=== PATIENT | male | born 1940 | race Caucasian/White ===

== ENCOUNTER → 2018-05-17 13:35 | Outpatient (CLI) | payer MEDICARE, OTHER, SELFPAY ==
[2018-05-17 14:12] LABS: Hemoglobin 11.9 g/dL (13.5-17.5); Mean Corpuscular HGB Conc 29.7 % (30-36); Mean Corpuscular Hemoglobin 21.4 PG (26-34); Platelet Count 357 X10^3/uL (150-400); Red Blood Cell Count 5.55 X10^6/uL (4.5-5.9); Red Cell Distribution Width 18.4 % (11.6-14.8)
[2018-05-17 14:16] LABS: Add Manual Diff / Slide Review YES; White Blood Cell Count 47.5 X10^3/uL (4.5-11.0)
[2018-05-17 14:36] LABS: Alanine Aminotransferase 28 IU/L (21-72); Albumin 4.4 g/dL (3.5-5.0); Albumin Globulin Ratio 1.7 (1.0-2.8); Alkaline Phosphatase 140 U/L (38-126); Aspartate Aminotransferase 28 IU/L (17-59); Bilirubin Total 0.5 mg/dL (0.2-1.3); Blood Urea Nitrogen 15 mg/dL (9-20); Calcium 9.1 mg/dL (8.4-10.2); Carbon Dioxide 23 mmol/L (22-32); Chloride 106 mmol/L (98-107); Estimated Glomerular Filt Rate > 60.0 mL/min (>60); Globulin 2.6 g/dL (1.7-4.1); Glucose 189 mg/dL (80-110); HEMOLYSIS 25 (0-50); Potassium 4.2 mmol/L (3.4-5.1); Sodium 140 mmol/L (137-145)
--- NOTE | 2018-05-17 14:43 | PC.NURSE ---
LAB CALLED WITH CRITICAL VALUE WBC 47.5 -RESULT TO HYPNOTHERAPIST
--- NOTE | 2018-05-17 14:55 | PC.NURSE ---
Dr Potts reviewed results, noting critical WBC of 47.5. No changes at this time. Pt comes in next week for a provider visit with Dr Potts.
[2018-05-17 15:40] LABS: Microcytosis 1+; Neutrophils Absolute Manual 43700 /uL (3000-5900); Total Cells Counted 100
[2018-05-17 15:41] LABS: Anisocytosis 1+; Ovalocytes 1+
== END ==
PROVIDERS: Family Provider Family Medicine; PCP Family Medicine; Visit Provider Internal Medicine Hematology & Oncology
DX: D45 Polycythemia vera (principal)
CPT/HCPCS: 36415; 80053; 85025

== ENCOUNTER → 2018-08-23 13:50 | Outpatient (CLI) | payer MEDICARE, OTHER, SELFPAY ==
[2018-08-23 14:23] LABS: Hematocrit 41.3 % (41-53); Hemoglobin 12.2 g/dL (13.5-17.5); Mean Corpuscular HGB Conc 29.5 % (30-36); Mean Corpuscular Hemoglobin 20.6 PG (26-34); Mean Corpuscular Volume 69.9 fL (80-100); Platelet Count 310 X10^3/uL (150-400); Red Blood Cell Count 5.91 X10^6/uL (4.5-5.9); Red Cell Distribution Width 18.6 % (11.6-14.8)
[2018-08-23 14:25] LABS: Add Manual Diff / Slide Review YES; Alanine Aminotransferase 30 IU/L (21-72); Albumin 4.5 g/dL (3.5-5.0); Albumin Globulin Ratio 1.7 (1.0-2.8); Alkaline Phosphatase 135 U/L (38-126); Aspartate Aminotransferase 27 IU/L (17-59); Bilirubin Total 0.5 mg/dL (0.2-1.3); Blood Urea Nitrogen 14 mg/dL (9-20); Calcium 9.2 mg/dL (8.4-10.2); Carbon Dioxide 25 mmol/L (22-32); Chloride 103 mmol/L (98-107); Estimated Glomerular Filt Rate > 60.0 mL/min (>60); Globulin 2.6 g/dL (1.7-4.1); Glucose 250 mg/dL (80-110); HEMOLYSIS < 15 (0-50); Lactate Dehydrogenase 459 U/L (313-618); Potassium 4.1 mmol/L (3.4-5.1); Sodium 142 mmol/L (137-145); Total Protein 7.1 g/dL (6.3-8.2); White Blood Cell Count 48.2 X10^3/uL (4.5-11.0)
[2018-08-23 14:37] LABS: Neutrophils Absolute Manual 46272 /uL (3000-5900); Total Cells Counted 100
[2018-08-23 14:38] LABS: Anisocytosis 1+; Microcytosis 1+
--- NOTE | 2018-08-23 16:20 | PC.NURSE ---
WBC's elevated at 48.2 just slightly higher than previous results. Appt with MD on 08/30
== END ==
PROVIDERS: Internal Medicine Hematology & Oncology; Family Provider Family Medicine; PCP Family Medicine
DX: D45 Polycythemia vera (principal)
CPT/HCPCS: 36415; 80053; 83615; 85025

== ENCOUNTER → 2019-02-09 11:41 | Outpatient (REF) | payer MEDICARE, OTHER, SELFPAY ==
[2019-02-09 12:34] LABS: Influenza A and B by PCR Rapid Negative (Negative)
== END ==
LOC: LAB 11:41
PROVIDERS: Family Provider Family Medicine; PCP Family Medicine; Visit Provider Family Medicine
DX: R05 Cough (principal)
CPT/HCPCS: 87400

== ENCOUNTER → 2019-03-30 12:24 | Outpatient (CLI) | payer MEDICARE, OTHER, SELFPAY ==
[2019-03-30 13:01] LABS: Hemoglobin 12.8 g/dL (13.5-17.5); Mean Corpuscular HGB Conc 29.6 % (30-36); Mean Corpuscular Hemoglobin 20.7 PG (26-34); Platelet Count 449 X10^3/uL (150-400); Red Blood Cell Count 6.15 X10^6/uL (4.5-5.9); Red Cell Distribution Width 18.5 % (11.6-14.8)
[2019-03-30 13:09] LABS: Add Manual Diff / Slide Review YES
[2019-03-30 13:24] LABS: Neutrophils Absolute Manual 55384 /uL (3000-5900); Total Cells Counted 100
[2019-03-30 13:25] LABS: Hypochromasia 1+; Microcytosis 1+
[2019-03-30 13:26] LABS: Anisocytosis 2+; Ovalocytes 1+; Poikilocytosis 1+
[2019-03-30 14:08] LABS: White Blood Cell Count 60.2 X10^3/uL (4.5-11.0)
== END ==
PROVIDERS: Family Provider Family Medicine; PCP Family Medicine
DX: D45 Polycythemia vera (principal)
CPT/HCPCS: 36415; 85025

== ENCOUNTER 2019-11-12 12:49 | Day surgery (SDC) | payer MEDICARE, OTHER, SELFPAY ==
[2019-11-01 07:27] VITALS: BMI 23.0
[2019-11-12] VITALS (11 sets, daily range): BP systolic 112–153; BP diastolic 62–78; PULSE 58–85; RESP 10–25; TEMP 36.1–37.3; O2SAT 95–98; BMI 23.0
[2019-11-12] MEDS: LACTATED RINGERS 1,000 ML 42 ML IV (13:15)
--- NOTE | 2019-11-12 13:57 | SUR.PREOP ---
Patient waiting to be consented for surgery.
[2019-11-12] MEDS: CEFAZOLIN 2 GM/100 ML FROZ.PIGGY IV (14:08)
--- NOTE | 2019-11-12 14:12 | P.HP_ITS ---
History of Present Illness History of Present Illness Date Patient Seen: 11/12/19 Time Patient Seen: 14:00 Chief complaint: [id number] [facility] Narrative: The patient is a gentleman who was seen in my office for a right inguinal hernia. Initially he did not want it repaired but after doing additional reading at home he called back and decided that he wanted to have a repair. He is brought in for same. Patient History Medical History CAD (coronary artery disease) (Acute) Chest pain (Acute) Diverticulitis (Acute) Diverticulosis (Acute) HTN (hypertension) (Acute) Hx of myocardial infarction (Acute ~07/2012) Hypercholesterolemia (Acute) Hyperglycemia (Acute) Hyperparathyroidism (Acute) Kidney stones (Acute) Pancreatitis (Acute) Polycythemia vera (Acute) Prostate cancer (Acute 2013) Ulcer (Acute) Surgical History History of AAA (abdominal aortic aneurysm) repair (Acute 12/07/14) History of coronary angioplasty with insertion of stent (Acute ~03/2007) Hx of abdominal surgery (Acute ~1982) Hx of colectomy (Acute ~1982) Hx of parathyroidectomy (Acute ~2006) Hx of prostatectomy (Acute 2013) Hx of shoulder surgery (Acute) S/P colostomy takedown (Acute) Family & Social History Social History: household members none Tobacco & Substance use: Tobacco type cigarettes Smoking Status Former smoker alcohol intake never Substance Use Type does not use Meds Home Medications and Allergies Home Medications Medication Instructions Recorded Confirmed Type aspirin 81 mg PO QMWF #0 01/25/13 11/12/19 History atenolol 25 mg PO QDAY #0 01/25/13 11/12/19 History atorvastatin [Lipitor] 20 mg PO QMWF #0 01/25/13 11/12/19 History pyridoxine (vitamin B6) 100 mg PO QDAY #0 08/19/17 11/12/19 History vitamin B complex 1 cap PO 4XW 05/24/18 11/12/19 History clopidogrel [Plavix] 1 cap PO Q3-4D 11/29/18 11/12/19 History hydroxyurea 500 mg PO QDAY #90 cap 05/30/19 11/12/19 Rx omeprazole 40 mg PO DAILY 11/07/19 11/12/19 History Allergies Allergy/AdvReac Type Severity Reaction Status Date / Time No Known Drug Allergies Allergy Verified 11/12/19 13:21 Review of Systems Review of Systems Narrative: Denies any new shortness of breath chest pain black or bloody bowel movement seizures or blackouts no new chest pain or heart problems. He does have a history of them though Exam Vital Signs (past 8 hours): - 11/12/19 13:38 11/12/19 13:45 Temperature 97.3 F L 97.3 F L Pulse Rate 58 L 58 L Respiratory Rate 20 20 Blood Pressure 153/75 H 153/75 H Pulse Oximetry 98 98 Oxygen Delivery Method Room Air Narrative Exam Narrative: Operative no apparent distress. His eyes are nonicteric. Neck is supple no nodes in the neck or supraclavicular areas. Lungs are clear to auscultation without rales or rhonchi. Heart regular rate and rhythm without murmur gallop. No bruit in the neck. Abdomen is soft he has bone from presumptively migration of osteo class from his epigastric pain. It is located down to his umbilicus from his xiphoid. There is a lower midline scar from his prostatectomy. He has a reducible right inguinal hernia. Testicle on that side is nontender. I don't appreciate a hernia on the left. Assessment & Plan Assessment & Plan narrative: Patient with a right inguinal hernia that he desires to have repaired. I talked to him about it. I talked to him about the use of mesh and non mesh. He will leave that to my judgment. Risks of bleeding, infection, injury to nerves which could cause chronic pain or numbness, testicular loss all discussed with him. He appears to understand and wishes to proceed.
--- NOTE | 2019-11-12 14:16 | PM.PREOP ---
Pre-operative Note Interval Note History & Physical reviewed/Exam performed by Physician: Yes Changes to H&P: No
--- NOTE | 2019-11-12 14:33 | SUR.OPER ---
Supine on padded OR bed, head on pillow, arms secured on padded arm boards at <90 degrees abduction, legs uncrossed, safety belt at thigh, tape over blanket over lower legs.
[2019-11-12] MEDS: BUPIVACAINE 0.5% (PF) VIAL 30 ML INJ (14:40)
--- NOTE | 2019-11-12 15:38 | PM.OP.1 ---
Operative Date/Time/Diagnoses Date of procedure: 11/12/19 Time of procedure: 15:38 Pre-op diagnosis: Reducible right inguinal hernia Post-op diagnosis: same (Indirect right inguinal hernia) Procedure & Clinicians Procedure: Repair with plug and patch technique Same procedure as scheduled: Yes Indications: Chronic right inguinal hernia. Minimally symptomatic Surgeon: Matt Napier Click Yes if Unassisted: Yes Anesthesia Type: General Operative Notes Findings: Indirect sac. The floor was fairly intact. Closure Type: primary Specimen(s): none sent Prosthetic devices, grafts, tissues, transplants, or devices: Mesh Estimated Blood Loss (mL): 30 Blood products transfused: none Procedure in detail: The patient was placed supine on the operating room table and underwent general LMA anesthesia. He was prepped and draped in the usual fashion. A transverse incision was made overlying the internal ring and carried down to the level of the external oblique. The external oblique was opened parallel with its fibers through the external ring. The cord structures were elevated. The cremaster was opened proximally and search made for an indirect sac. One was found and from the cord structures. It was opened and the there was intestine visible but not adherent to the sac. The intestine was kept reduced and a pursestring of 2 0 silk was placed at the level the deep epigastric vessels. The sac was then tied distal to this as well. The distal portion of the sac was removed. Local anesthetic was infiltrated into this base of the sac and it was allowed to retract. A medium plug was placed in the defect created by this hernia and tacked into place with interrupted 0 Ethibond suture. The cremaster was then closed over it with a 3 0 Vicryl suture.. The floor was examined and was found to be fairly intact.. A patch was placed across the floor and tacked at the pubic tubercle, the posterior lamella of the anterior rectus sheath, the ilioinguinal ligament, and superior lateral to the cord. The opening was sutured in such a way to prevent tight constriction of the cord. Sutures of 0 Tycron were used to secure the mesh. The external oblique was closed with a running 3 0 Polysorb. The subcu was closed with interrupted 3 0 Polysorb. The skin was closed with a running 4 0 Polysorb subcuticular stitch and Steri-Strips. Dressing was applied, the patient was awakened, and the patient was taken to the recovery area in good condition. Of note, the patient had diffuse oozing throughout the procedure presumptively from his use of Plavix. At completion things seemed to be very dry. Much of the using was from tissue and not vessels. Complications: none Post-operative Condition: stable Disposition: PACU Plan for aftercare: Follow-up in the office
[2019-11-12] MEDS: fentaNYL 100 MCG/2 ML INJ IV (15:55)
[2019-11-12] MEDS: OXYCODONE/ACETAMINOPHEN 5/325 TABLET 1 TAB PO (16:04)
--- NOTE | 2019-11-12 16:57 | SUR.PHASEII ---
Daughter given presciptions to fill, returned when done. D/c instructions discussed with both, both voiced an understanding, pt left when ready, assisted to dress by RUSSEL Diane. Left unit in stable condition.
== END 2019-11-12 17:00 | disposition home or self-care (01) ==
PROVIDERS: Family Provider Family Medicine; PCP Family Medicine; Visit Provider Specialist
PROC: (CPT 49505; principal; 2019-11-12 14:15)
DX: K40.90 Unilateral inguinal hernia, without obstruction or gangrene, not specified as recurrent (principal); I25.10 Atherosclerotic heart disease of native coronary artery without angina pectoris; I10 Essential (primary) hypertension; I25.2 Old myocardial infarction; E78.00 Pure hypercholesterolemia, unspecified; D45 Polycythemia vera
CPT/HCPCS: 49505; C1781; J0690; J1100; J1885; J2405; J2704; J3010

== ENCOUNTER → 2020-03-19 11:35 | Outpatient (CLI) | payer MEDICARE, OTHER, SELFPAY ==
--- NOTE | 2020-03-19 | DI.RAD.S_ITS ---
PROCEDURE: XR HAND LT 2V INDICATIONS: BILATERAL THUMB PAIN TECHNIQUE: 2 views of the hand(s) acquired. COMPARISON: None. 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 Carpal bones are normally aligned. No suspicious bony lesions. Soft tissues: No suspicious soft tissue calcifications. 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 Dictated by: Ramon Whittington M.D. on 03/19/2020 at 12:07 Approved by: Ramon Whittington M.D. on 03/19/2020 at 12:08
--- NOTE | 2020-03-19 | DI.RAD.S_ITS ---
PROCEDURE: XR HAND RT 2V INDICATIONS: BILATERAL THUMB PAIN TECHNIQUE: 2 views of the hand(s) acquired. COMPARISON: None. FINDINGS: Bones: No fractures or dislocations, but there is moderate degenerative osteoarthritis at the base of the first metacarpal, slightly less pronounced than on the left.. Carpal bones are normally aligned. No suspicious bony lesions. Soft tissues: No suspicious soft tissue calcifications. IMPRESSION: Moderate degenerative osteoarthritis at the base of the first metacarpal with slight ligamentous laxity is indicated by lateral subluxation of the metacarpal base. Dictated by: Ramon Whittington M.D. on 03/19/2020 at 12:08 Approved by: Ramon Whittington M.D. on 03/19/2020 at 12:09
== END ==
PROVIDERS: Family Provider Family Medicine; PCP Family Medicine; Referring Provider Family Medicine; Visit Provider Family Medicine
DX: M25.541 Pain in joints of right hand (principal); M25.542 Pain in joints of left hand; M19.042 Primary osteoarthritis, left hand; M19.041 Primary osteoarthritis, right hand
CPT/HCPCS: 73120

== ENCOUNTER 2020-05-23 08:03 | Emergency (ER) | payer MEDICARE, OTHER, SELFPAY ==
[2020-05-23] VITALS (15 sets, daily range): BP systolic 113–166; BP diastolic 54–70; PULSE 68–81; RESP 14–25; TEMP 36.9; O2SAT 97–100; BMI 22.3
--- NOTE | 2020-05-23 08:29 | ED_ITS ---
HPI - GI Bleed General Chief complaint: GI Bleed Stated complaint: Rectal Bleeding Time Seen by Provider: 05/23/20 08:06 Source: patient Mode of arrival: EMS Limitations: no limitations History of Present Illness HPI Narrative: CC:GI Bleed HPI: The patient is an 79-year-old male who was flown by helicopter from [facility] for rectal bleeding. The patient stated that he believes that his bleeding started yesterday. He did not really look in the toilet. He states that it seems was stopped yesterday and then resumed this morning. He denies having any pain or discomfort. He denies being dizzy lightheaded or having any syncope. He is just been very weak and tired. He has no energy. He has had 2 previous episodes of profuse arm bleeding so he came in immediately. He states that he has had surgery on his stomach twice 1 for a vagotomy and nerve cutting and a 2nd for modification of his stomach. He cannot verify that he has had a partial gastrectomy. He states that he had a temporary colostomy. He denies a history of diverticulitis Crohn's disease or ulcerative colitis or irritable bowel syndrome. He is having absolutely no pain or discomfort as well as any shortness of breath chest pain racing of his heart or palpitations. He has had no fever chills or sweats. He denies any indigestion or heartburn as well as any nausea vomiting hematemesis coffee-ground emesis. He has had no urinary symptoms. He denies a history of hepatitis TB or HIV. He has had a hernia repair and he has had a prostatectomy for prostate cancer. 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 He is on no anticoagulation other than aspirin and Plavix. 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 He admits to hypertension but denies diabetes mellitus pancreatitis COPD or asthma. He is a former smoker does not drink alcohol or use any drugs. Related Data Home Medications Medication Instructions Recorded Confirmed aspirin 81 mg PO QMWF #0 01/25/13 12/12/19 atenolol 25 mg PO QDAY #0 01/25/13 12/12/19 atorvastatin [Lipitor] 20 mg PO QMWF #0 01/25/13 12/12/19 pyridoxine (vitamin B6) 100 mg PO QDAY #0 08/19/17 12/12/19 vitamin B complex 1 cap PO 4XW 05/24/18 12/12/19 omeprazole 40 mg PO DAILY 11/07/19 12/12/19 clopidogrel [Plavix] 75 mg PO Q3-4D 12/12/19 12/12/19 Previous Rx's Medication Instructions Recorded hydroxyurea 500 mg PO QDAY #90 cap 01/09/20 Allergies Allergy/AdvReac Type Severity Reaction Status Date / Time No Known Drug Allergies Allergy Verified 12/11/19 13:34 Review of Systems Review of Systems Narrative: Review of systems were all negative except for those mentioned in the history of present illness. Patient History Medical History CAD (coronary artery disease) (Acute) Chest pain (Acute) Diverticulitis (Acute) Diverticulosis (Acute) HTN (hypertension) (Acute) Hx of myocardial infarction (Acute ~07/2012) Hypercholesterolemia (Acute) Hyperglycemia (Acute) Hyperparathyroidism (Acute) Kidney stones (Acute) Pancreatitis (Acute) Polycythemia vera (Acute) Prostate cancer (Acute 2013) Ulcer (Acute) Surgical History History of AAA (abdominal aortic aneurysm) repair (Acute 12/07/14) History of coronary angioplasty with insertion of stent (Acute ~03/2007) Hx of abdominal surgery (Acute ~1982) Hx of colectomy (Acute ~1982) Hx of parathyroidectomy (Acute ~2006) Hx of prostatectomy (Acute 2013) Hx of shoulder surgery (Acute) S/P colostomy takedown (Acute) Social History marital status: unknown household members: none Smoking Status: Former smoker alcohol intake: never substance use type: does not use Smoking Status: Former smoker Substance Use Type: does not use Exam Narrative Exam Narrative: PHYSICAL EXAM: CONSTITUTIONAL: Awake, Alert, Oriented, Coherent, Cooperative in NAD. Does not appear toxic or ill. The patient appears mildly pale. HEAD: AT/NC EENT: PERRL, miotic, FROM of eyes, no discharge, no nystagmus, no history of cataracts or glaucoma NOSE:No epistaxis or nasal drainage MOUTH:Oral mucosa is moist and pale pink, posterior pharynx is without erythema or exudate. NECK: Supple, no obvious JVD, Trachea is midline without stridor, no palpable LN. THORAX: No deformity, retractions, chest wall tenderness. LUNGS: Clear, symmetrical breath sounds without respiratory distress. HEART: Normal heart tones, regular rhythm and rate without murmur. ABDOMEN: Soft, non-tender, no palpable guarding or rebound. The patient has multiple surgical scars; a suprapubic midline longitudinal scar, a super umbili radha, epigastric low midline longitudinal scar and a transverse horizontal scar in the right lower quadrant. LYMPHATIC: no palpable lymph nodes or spleen. EXTREMITIES: No edema, deformity, tenderness or cyanosis. SKIN: No rash, bruising, petechiae or purpura. NEURO: Awake, alert, oriented, conversive, cranial nerves II-XII are symmetrical , moves all 4 extremities . MENTAL HEALTH: Does not appear anxious or depressed. Initial Vital Signs Initial Vital Signs: Vital Signs Temperature 98.5 F 05/23/20 08:01 Pulse Rate 71 05/23/20 08:01 Respiratory Rate 16 05/23/20 08:01 Blood Pressure 166/66 H 05/23/20 08:01 Pulse Oximetry 100 05/23/20 08:01 Course Course Course Narrative: 0950: The patient according to the nurses has just passed a BM that was just bright red blood. The patient's lactic acid is borderline elevated. A 2nd L of IV fluid will be administered. Two blood cultures will be obtained. The patient's GFR is greater than [address] scan of his abdomen will be obtained since he has had multiple surgeries. I will then discuss the patient with the general surgeon on-call. 11:00CT reveals Call into Dr. Mcarthur 1118: Lyubov will consult, call into hospitalist. 1130: The patient and his daughter informed the nurse that if he needs surgery he would like to be transferred to [facility] because that is where he has had all of his surgical procedures performed. Dr. Mcarthur who came down to see the patient was informed of this as was . At the present time a call has been placed to the [facility] to arrange transfer. Family confirmed that the patient requests being transferred to [facility]. 1159: I spoke with the cafeteria or lunchroom checker at the [facility] who will be calling GI to discuss the patient and then the hospitalist afterwards. Arrangements for transfer are being made. 1215: I spoke with a anesthesiologist assistant at [facility] who states that he will consult. He was questioning whether not the patient needed to actually be admitted to the hospital. I explained to him that I think he needs to be admitted at least operative age here in emergency department and at home filling the toilet. [facility] will call back with the hospitalist to accept the patient being transfered. 1234: I spoke with Dr. Hunt the hospitalist at [facility] who has accepted the patient being transferred and made a direct admit to [address] [place] [address]. [facility] will call back with the bed assignment. [facility] will isolate the patient and test the patient for Covid. Orders Ordered: Discontinued Medications Sodium Chloride (Normal Saline 0.9%) 1,000 mls @ 1,000 mls/hr IV BOLUS ONE Stop: 05/23/20 09:10 Last Infusion: 05/23/20 09:54 Dose: 0 mls/hr Documented by: Admin: 05/23/20 08:41 Dose: 1,000 mls/hr Documented by: YARITZA Sodium Chloride (Normal Saline 0.9%) 1,000 mls @ 1,000 mls/hr IV BOLUS ONE Stop: 05/23/20 10:47 Last Infusion: 05/23/20 11:25 Dose: 0 mls/hr Documented by: Admin: 05/23/20 10:04 Dose: 1,000 mls/hr Documented by: YARITZA Sodium Chloride (Normal Saline 0.9%) 1,000 mls @ 125 mls/hr IV CONT WALDO Last Infusion: 05/23/20 13:46 Dose: 0 mls/hr Documented by: Admin: 05/23/20 11:58 Dose: 125 mls/hr Documented by: KAMILA Ciprofloxacin (Cipro) 400 mg in 200 mls @ 200 mls/hr IV NOW WALDO Last Infusion: 05/23/20 14:40 Dose: 0 mls/hr Documented by: Admin: 05/23/20 13:43 Dose: 200 mls/hr Documented by: KAMILA Metronidazole (Flagyl) 500 mg in 100 mls @ 100 mls/hr IV NOW ONE Stop: 05/23/20 13:03 Last Infusion: 05/23/20 14:25 Dose: 0 mls/hr Documented by: Admin: 05/23/20 12:28 Dose: 100 mls/hr Documented by: KAMILA Octreotide Acetate (Sandostatin) 50 mcg IV NOW ONE Stop: 05/23/20 09:50 Last Admin: 05/23/20 10:05 Dose: 50 mcg Documented by: YARITZA Pantoprazole Sodium (Protonix) 40 mg IV NOW ONE Stop: 05/23/20 08:40 Last Admin: 05/23/20 08:47 Dose: 40 mg Documented by: YARITZA Vital Signs Vital signs: Vital Signs - 8 hr 05/23/20 08:01 05/23/20 09:30 05/23/20 10:00 Temperature 98.5 F Pulse Rate 71 69 72 Respiratory Rate 16 22 17 Blood Pressure 166/66 H 148/70 H Pulse Oximetry 100 100 100 05/23/20 10:11 05/23/20 10:30 05/23/20 11:00 Temperature Pulse Rate 68 73 77 Respiratory Rate 23 19 17 Blood Pressure 160/69 H Pulse Oximetry 100 99 99 05/23/20 11:30 05/23/20 12:00 Temperature Pulse Rate 74 78 Respiratory Rate 16 19 Blood Pressure Pulse Oximetry 99 98 MDM - GI Bleed Medical Records Attestation: I reviewed the patient's medical records. Lab Data Attestation: I reviewed the patient's lab results. Result diagrams: 05/23/20 14:37 05/23/20 09:12 Labs: Lab Results 05/23/20 05/23/20 05/23/20 Range/Units 08:15 08:15 08:15 WBC 54.8 H* (4.5-11.0) X10^3/uL RBC 5.55 (4.5-5.9) X10^6/uL Hgb 12.6 L (13.5-17.5) g/dL Hct 43.0 (41-53) % MCV 77.5 L (80-100) fL MCH 22.8 L (26-34) PG MCHC 29.4 L (30-36) % RDW 17.3 H (11.6-14.8) % Plt Count 335 (150-400) X10^3/uL Neut % (Auto) Not Reportable Lymph % (Auto) Not Reportable Wolfe % (Auto) Not Reportable Eos % (Auto) Not Reportable Baso % (Auto) Not Reportable Lymph # (Auto) Not Reportable Wolfe # (Auto) Not Reportable Baso # (Auto) Not Reportable Total Counted 50 Seg Neutrophils % 90.0 H (38-70) % Band Neutrophils % 6.0 (3-7) % Lymphocytes % (Manual) 2.0 L (25-45) % Atypical Lymphs % 2.0 H ( - 0) % Neutrophils # (Manual) 49255 H (2117-6306) /uL RBC Morphology Not Reportable Anisocytosis 1+ H Tear Drop Cells 1+ H PT 13.0 H (10.1-12.7) SECONDS INR 1.1 (0.9-1.3) APTT 35 (26.4-36.2) SECONDS Sodium (137-145) mmol/L Potassium (3.4-5.1) mmol/L Chloride (98-107) mmol/L Carbon Dioxide (22-32) mmol/L BUN (9-20) mg/dL Creatinine (0.66-1.25) mg/dL Estimated GFR (>60) mL/min BUN/Creatinine Ratio (6-22) Glucose (80-110) mg/dL Lactate 2.3 H (0.7-2.1) mmol/L Calcium (8.4-10.2) mg/dL Total Bilirubin (0.2-1.3) mg/dL AST (17-59) IU/L ALT (<50) IU/L Alkaline Phosphatase (38-126) U/L Lactate Dehydrogenase (313-618) U/L Total Creatine Kinase (55-170) U/L CK-MB (CK-2) CK-MB (CK-2) Rel Index Troponin I (0.01-0.034) ng/mL Total Protein (6.3-8.2) g/dL Albumin (3.5-5.0) g/dL Globulin (1.7-4.1) g/dL Albumin/Globulin Ratio (1.0-2.8) Lipase (23-300) U/L Urine Color Urine Appearance Urine pH (4.5-8.0) Ur Specific [place] (1.000-1.035) Urine Protein (Negative) Urine Glucose (UA) (Negative) g/dL Urine Ketones (NEGATIVE) Urine Occult Blood (Negative) Urine Nitrate (Negative) Urine Bilirubin (NEGATIVE) Urine Urobilinogen (0.2) E.U./dL Ur Leukocyte Esterase (NEGATIVE) Urine RBC (0-5/HPF) Urine WBC (0-5/HPF) Urine Bacteria (None) Ur Culture Indicated? Stool Occult Blood (Negative) Blood Type Antibody Screen 05/23/20 05/23/20 05/23/20 Range/Units 08:15 09:12 09:34 WBC (4.5-11.0) X10^3/uL RBC (4.5-5.9) X10^6/uL Hgb (13.5-17.5) g/dL Hct (41-53) % MCV (80-100) fL MCH (26-34) PG MCHC (30-36) % RDW (11.6-14.8) % Plt Count (150-400) X10^3/uL Neut % (Auto) Lymph % (Auto) Wolfe % (Auto) Eos % (Auto) Baso % (Auto) Lymph # (Auto) Wolfe # (Auto) Baso # (Auto) Total Counted Seg Neutrophils % (38-70) % Band Neutrophils % (3-7) % Lymphocytes % (Manual) (25-45) % Atypical Lymphs % ( - 0) % Neutrophils # (Manual) (1285-0402) /uL RBC Morphology Anisocytosis Tear Drop Cells PT (10.1-12.7) SECONDS INR (0.9-1.3) APTT (26.4-36.2) SECONDS Sodium 138 (137-145) mmol/L Potassium 4.6 (3.4-5.1) mmol/L Chloride 106 (98-107) mmol/L Carbon Dioxide 24 (22-32) mmol/L BUN 18 (9-20) mg/dL Creatinine 0.98 (0.66-1.25) mg/dL Estimated GFR > 60.0 (>60) mL/min BUN/Creatinine Ratio 18.4 (6-22) Glucose 118 H (80-110) mg/dL Lactate (0.7-2.1) mmol/L Calcium 9.2 (8.4-10.2) mg/dL Total Bilirubin 0.6 (0.2-1.3) mg/dL AST 29 (17-59) IU/L ALT 25 (<50) IU/L Alkaline Phosphatase 155 H (38-126) U/L Lactate Dehydrogenase 563 (313-618) U/L Total Creatine Kinase 29 L (55-170) U/L CK-MB (CK-2) TNP CK-MB (CK-2) Rel Index TNP Troponin I < 0.012 (0.01-0.034) ng/mL Total Protein 6.7 (6.3-8.2) g/dL Albumin 4.2 (3.5-5.0) g/dL Globulin 2.5 (1.7-4.1) g/dL Albumin/Globulin Ratio 1.7 (1.0-2.8) Lipase 173 (23-300) U/L Urine Color Urine Appearance Urine pH (4.5-8.0) Ur Specific [place] (1.000-1.035) Urine Protein (Negative) Urine Glucose (UA) (Negative) g/dL Urine Ketones (NEGATIVE) Urine Occult Blood (Negative) Urine Nitrate (Negative) Urine Bilirubin (NEGATIVE) Urine Urobilinogen (0.2) E.U./dL Ur Leukocyte Esterase (NEGATIVE) Urine RBC (0-5/HPF) Urine WBC (0-5/HPF) Urine Bacteria (None) Ur Culture Indicated? Stool Occult Blood Positive H (Negative) Blood Type O Positive Antibody Screen Negative 05/23/20 05/23/20 Range/Units 09:50 14:37 WBC (4.5-11.0) X10^3/uL RBC (4.5-5.9) X10^6/uL Hgb 10.5 L (13.5-17.5) g/dL Hct 36.6 L (41-53) % MCV (80-100) fL MCH (26-34) PG MCHC (30-36) % RDW (11.6-14.8) % Plt Count (150-400) X10^3/uL Neut % (Auto) Lymph % (Auto) Wolfe % (Auto) Eos % (Auto) Baso % (Auto) Lymph # (Auto) Wolfe # (Auto) Baso # (Auto) Total Counted Seg Neutrophils % (38-70) % Band Neutrophils % (3-7) % Lymphocytes % (Manual) (25-45) % Atypical Lymphs % ( - 0) % Neutrophils # (Manual) (6201-3704) /uL RBC Morphology Anisocytosis Tear Drop Cells PT (10.1-12.7) SECONDS INR (0.9-1.3) APTT (26.4-36.2) SECONDS Sodium (137-145) mmol/L Potassium (3.4-5.1) mmol/L Chloride (98-107) mmol/L Carbon Dioxide (22-32) mmol/L BUN (9-20) mg/dL Creatinine (0.66-1.25) mg/dL Estimated GFR (>60) mL/min BUN/Creatinine Ratio (6-22) Glucose (80-110) mg/dL Lactate (0.7-2.1) mmol/L Calcium (8.4-10.2) mg/dL Total Bilirubin (0.2-1.3) mg/dL AST (17-59) IU/L ALT (<50) IU/L Alkaline Phosphatase (38-126) U/L Lactate Dehydrogenase (313-618) U/L Total Creatine Kinase (55-170) U/L CK-MB (CK-2) CK-MB (CK-2) Rel Index Troponin I (0.01-0.034) ng/mL Total Protein (6.3-8.2) g/dL Albumin (3.5-5.0) g/dL Globulin (1.7-4.1) g/dL Albumin/Globulin Ratio (1.0-2.8) Lipase (23-300) U/L Urine Color Yellow Urine Appearance Clear Urine pH 5.0 (4.5-8.0) Ur Specific [place] 1.010 (1.000-1.035) Urine Protein Negative (Negative) Urine Glucose (UA) Negative (Negative) g/dL Urine Ketones Negative (NEGATIVE) Urine Occult Blood Trace-intact (Negative) Urine Nitrate Negative (Negative) Urine Bilirubin Negative (NEGATIVE) Urine Urobilinogen 0.2 (0.2) E.U./dL Ur Leukocyte Esterase Negative (NEGATIVE) Urine RBC 0-1/hpf (0-5/HPF) Urine WBC None seen (0-5/HPF) Urine Bacteria None seen (None) Ur Culture Indicated? Cult not indicated Stool Occult Blood (Negative) Blood Type Antibody Screen ECG Data Attestation: I personally reviewed and interpreted this ECG as follows: Interpretation: 0838: The patient's EKG obtained on May 23 at 8:25 a.m. reveals a normal sinus rhythm with a ventricular rate of 63. Intervals appear to be normal QTC is 421 milliseconds axis is normal. There are no acute diagnostic ST or T-wave changes. T-waves in leads V1 appear to be biphasic. The patient has a prominent U wave in lead V3. Discharge Plan Departure Patient Disposition: [facility] Clinical Impression: GI bleed Discharge Date/Time: 05/23/20 14:40 Prescriptions: No Action atorvastatin [Lipitor] 20 MG tablet 20 mg PO QMWF Qty: 0 RF: 0 atenolol 25 MG tablet 25 mg PO QDAY Qty: 0 RF: 0 aspirin 81 MG tablet,delayed release (DR/EC) 81 mg PO QMWF Qty: 0 RF: 0 pyridoxine (vitamin B6) 100 MG tablet 100 mg PO QDAY Qty: 0 RF: 0 vitamin B complex Capsule 1 cap PO 4XW RF: 0 clopidogrel [Plavix] 75 mg Tablet 75 mg PO Q3-4D RF: 0 hydroxyurea 500 MG capsule 500 mg PO QDAY Qty: 90 RF: 3 omeprazole 40 mg Capsule,Delayed Release(Dr/Ec) 40 mg PO DAILY RF: 0
[2020-05-23] MEDS: SODIUM CHLORIDE 0.9% 1,000 ML 1000 ML IV ×2 (08:41→10:04)
[2020-05-23 08:42] LABS: Hemoglobin 12.6 g/dL (13.5-17.5); Mean Corpuscular HGB Conc 29.4 % (30-36); Mean Corpuscular Hemoglobin 22.8 PG (26-34); Mean Corpuscular Volume 77.5 fL (80-100); Platelet Count 335 X10^3/uL (150-400); Red Blood Cell Count 5.55 X10^6/uL (4.5-5.9); Red Cell Distribution Width 17.3 % (11.6-14.8)
[2020-05-23 08:45] LABS: White Blood Cell Count 54.8 X10^3/uL (4.5-11.0)
[2020-05-23 08:46] LABS: Add Manual Diff / Slide Review YES
[2020-05-23 08:47] LABS: INR 1.1 (0.9-1.3)
[2020-05-23] MEDS: PANTOPRAZOLE 40 MG VIAL IV (08:47)
[2020-05-23 08:49] LABS: PTT Partial Thromboplastin Tim 35 SECONDS (26.4-36.2)
[2020-05-23 08:52] LABS: Lactate (Lactic Acid) 2.3 mmol/L (0.7-2.1)
[2020-05-23 09:09] LABS: Neutrophils Absolute Manual 52608 /uL (3000-5900); Total Cells Counted 50
[2020-05-23 09:10] LABS: Anisocytosis 1+; Tear Drop Cells 1+
[2020-05-23 09:35] LABS: Alanine Aminotransferase 25 IU/L (<50); Albumin 4.2 g/dL (3.5-5.0); Albumin Globulin Ratio 1.7 (1.0-2.8); Alkaline Phosphatase 155 U/L (38-126); Aspartate Aminotransferase 29 IU/L (17-59); BUN Creatinine Ratio 18.4 (6-22); Bilirubin Total 0.6 mg/dL (0.2-1.3); Blood Urea Nitrogen 18 mg/dL (9-20); Calcium 9.2 mg/dL (8.4-10.2); Carbon Dioxide 24 mmol/L (22-32); Chloride 106 mmol/L (98-107); Creatine Kinase 29 U/L (55-170); Estimated Glomerular Filt Rate > 60.0 mL/min (>60); Globulin 2.5 g/dL (1.7-4.1); Glucose 118 mg/dL (80-110); Lipase 173 U/L (23-300); Potassium 4.6 mmol/L (3.4-5.1); Sodium 138 mmol/L (137-145); Total Protein 6.7 g/dL (6.3-8.2)
[2020-05-23 09:44] LABS: Occult Blood 1 Positive (Negative)
[2020-05-23 09:46] LABS: Troponin I < 0.012 ng/mL (0.01-0.034)
--- NOTE | 2020-05-23 10:03 | DI.CT.S_ITS ---
PROCEDURE: CT ABDOMEN PELVIS W CON INDICATIONS: Acute GI rectal bleed, H/O PUD, polycythema vera, diverticut TECHNIQUE: After the administration of intravenous contrast, 5 mm thick sections acquired from the diaphragm to the symphysis. 5 mm coronal and sagittal reformats were acquired. For radiation dose reduction, the following was used: automated exposure control, adjustment of mA and/or kV according to patient size. COMPARISON: [facility], CT, ABDOMEN/PELVIS WITH CONTRAST, 09/17/2016, 14:25. [facility], CT, ABDOMEN/PELVIS WITH CONTRAST, 12/07/2014, 10:54. FINDINGS: Image quality: Excellent. ABDOMEN: Lung bases: Lung bases are clear. Heart size is normal. Solid organs: Liver is normal in size and enhancement. Multiple gallstones are present in the gallbladder. Biliary system is nondilated. Pancreas enhances normally. There is mild splenomegaly. No adrenal nodules. Kidneys demonstrate normal size and enhancement, without hydronephrosis. A nonobstructing 2 mm calculus is seen in the inferior pole of the right kidney. Peritoneum and bowel: Surgical clips are noted at the gastroesophageal junction and adjacent to the proximal duodenum. Additional hyperintense foci in the left upper abdomen are seen. Postsurgical changes are also seen in the sigmoid colon from a partial colectomy. A few scattered diverticula are seen in the colon without surrounding fat stranding to suggest acute diverticulitis. The appendix is normal in size. There are no signs of bowel obstruction. The rectum is mildly distended with fluid and or stool. There is no ascites or pneumoperitoneum. Nodes and vessels: No retroperitoneal or mesenteric adenopathy by size criteria. Postsurgical changes are seen from endovascular aortic repair. Miscellaneous: No ventral hernias. PELVIS: Genitourinary: Bladder wall thickness is normal. Miscellaneous: No inguinal hernias or adenopathy. Bones: No suspicious bony lesions. No vertebral body compression fractures. Degenerative changes are seen in the lower lumbar spine and the sacroiliac joints. IMPRESSION: 1. Postsurgical changes in the sigmoid colon. Scattered colonic diverticulosis without signs of acute diverticulitis. There is no pneumoperitoneum. 2. Cholelithiasis. 3. Non-obstructing 2 mm calculus in the inferior pole the right kidney. Dictated by: Brenden Doe M.D. on 05/23/2020 at 10:13 Approved by: Brenden Doe M.D. on 05/23/2020 at 10:26
[2020-05-23] MEDS: OCTREOTIDE 100 MCG/ML VIAL 50 MCG IV (10:05)
[2020-05-23 10:13] LABS: Bacteria Urine None Seen; WBC Urine None Seen (0-5/HPF)
[2020-05-23 10:14] LABS: Appearance Urine UA CLEAR; Bilirubin Urine UA NEGATIVE (NEGATIVE); Color Urine UA YELLOW; Glucose Urine UA NEGATIVE (Negative); Ketones Urine UA NEGATIVE (NEGATIVE); Leukocyte Esterase Urine UA NEGATIVE (NEGATIVE); Nitrite Urine UA NEGATIVE (Negative); Occult Blood Urine UA TRACE-INTACT (Negative); Protein Urine UA NEGATIVE (Negative); Urobilinogen Urine UA 0.2 E.U./dL (0.2)
[2020-05-23 10:19] LABS: Culture Indicated Urine Cult Not Indicated; RBC Urine 0-1/HPF (0-5/HPF)
[2020-05-23 10:36] LABS: Reflexed Lactate in 2 Hours Y
[2020-05-23 11:01] LABS: HEMOLYSIS 21 (0-50); Lactate Dehydrogenase 563 U/L (313-618)
--- NOTE | 2020-05-23 11:37 | PC.NURSE ---
patient went on the BSC and was able to pass 200mls of jazmine blood.
[2020-05-23] MEDS: SODIUM CHLORIDE 0.9% 1,000 ML 125 ML IV (11:58)
[2020-05-23] MEDS: metroNIDAZOLE 500 MG/100 ML PIGGYBACK 100 MG IV (12:28)
[2020-05-23] MEDS: CIPROFLOXACIN 400 MG/200 ML PIGGYBACK 200 MG IV (13:43)
[2020-05-23 15:03] LABS: Hematocrit 36.6 % (41-53); Hemoglobin 10.5 g/dL (13.5-17.5)
== END 2020-05-23 14:40 | disposition short-term general hospital (02) ==
PROVIDERS: Emergency Provider Emergency Medicine; Family Provider Family Medicine; PCP Family Medicine
DX: K92.2 Gastrointestinal hemorrhage, unspecified (principal); R53.83 Other fatigue; I10 Essential (primary) hypertension; Z79.82 Long term (current) use of aspirin; D45 Polycythemia vera
CPT/HCPCS: 36415; 74177; 80053; 81001; 82270; 82550; 83605; 83615; 83690; 84484; 85014; 85018; 85025; 85610; 85730; 86850; 86900; 86901; 87040; 93005; 96361; 96365; 96366; 96367; 96375; 99284; C9113; J0744; J2354; Q9967

== ENCOUNTER → 2020-11-07 10:01 | Outpatient (CLI) | payer MEDICARE, OTHER, SELFPAY | PROVIDERS: Family Provider Family Medicine; PCP Family Medicine; Referring Provider Family Medicine; Visit Provider Family Medicine | DX: M85.852 Other specified disorders of bone density and structure, left thigh (principal); E21.3 Hyperparathyroidism, unspecified; Z85.46 Personal history of malignant neoplasm of prostate; Z87.891 Personal history of nicotine dependence | CPT/HCPCS: 77080 ==

== ENCOUNTER → 2022-02-03 10:32 | Outpatient (ROUT) | payer MEDICARE, OTHER, SELFPAY ==
[2022-02-03 10:45] LABS: Hematocrit 43.2 % (41-53); Hemoglobin 12.7 g/dL (13.5-17.5); Mean Corpuscular HGB Conc 29.4 % (30-36); Mean Corpuscular Hemoglobin 22.7 PG (26-34); Mean Corpuscular Volume 76.9 fL (80-100); Platelet Count 189 X10^3/uL (150-400); Red Blood Cell Count 5.61 X10^6/uL (4.5-5.9); Red Cell Distribution Width 18.5 % (11.6-14.8)
[2022-02-03 10:47] LABS: Alanine Aminotransferase 24 IU/L (<50); Albumin 4.8 g/dL (3.5-5.0); Albumin Globulin Ratio 1.7 (1.0-2.8); Alkaline Phosphatase 139 U/L (38-126); Aspartate Aminotransferase 31 IU/L (17-59); BUN Creatinine Ratio 14.7 (6-22); Bilirubin Total 0.8 mg/dL (0.2-1.3); Blood Urea Nitrogen 16 mg/dL (9-20); Calcium 9.6 mg/dL (8.4-10.2); Carbon Dioxide 26 mmol/L (22-32); Chloride 104 mmol/L (98-107); Estimated Glomerular Filt Rate > 60.0 mL/min (>60); Globulin 2.9 g/dL (1.7-4.1); Glucose 118 mg/dL (80-110); HEMOLYSIS 21 (0-50); Potassium 3.9 mmol/L (3.4-5.1); Sodium 141 mmol/L (137-145); Total Protein 7.7 g/dL (6.3-8.2)
[2022-02-03 10:52] LABS: Add Manual Diff / Slide Review YES; White Blood Cell Count 66.4 X10^3/uL (4.5-11.0)
[2022-02-03 11:09] LABS: Hypochromasia 2+; Neutrophils Absolute Manual 63744 /uL (3000-5900); Total Cells Counted 100
== END ==
PROVIDERS: Family Provider Family Medicine; PCP Family Medicine; Visit Provider Internal Medicine Medical Oncology
DX: D45 Polycythemia vera (principal); C92.10 Chronic myeloid leukemia, BCR/ABL-positive, not having achieved remission
CPT/HCPCS: 80053; 85007; 85025

== ENCOUNTER → 2022-02-17 11:44 | Outpatient (CLI) | payer MEDICARE, OTHER, SELFPAY ==
--- NOTE | 2022-02-17 11:46 | DI.CT.S_ITS ---
PROCEDURE: CT CHEST ABD PEL W CON INDICATIONS: Unspecified abdominal pain TECHNIQUE: After the administration of oral and intravenous contrast, axial sections acquired from the supraclavicular neck to the pubic symphysis. Coronal and sagittal reformats were performed. For radiation dose reduction, the following was used: automated exposure control, adjustment of mA and/or kV according to patient size. COMPARISON: [facility], CT, CT ABDOMEN PELVIS W CON, 05/23/2020, 9:45. FINDINGS: Image quality: Excellent. CHEST: Lower Neck: No enlarged lymph nodes. Thyroid: Within normal limits. Axillae: No enlarged lymph nodes. Chest Wall: Unremarkable. Lungs and Airways: No consolidation or suspicious nodules. Minimal inflammatory nodule, subpleural right upper lobe, image 60/3. Pleura: No pneumothorax or pleural effusions. Heart: Heart size is normal. No pericardial effusion. At least moderate coronary artery calcifications. Thoracic Vessels: The aorta and pulmonary arteries demonstrate normal size. 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 Mediastinum and Debbi: No enlarged lymph nodes. Esophagus: No wall thickening. No hiatal hernia. ABDOMEN: Liver: Unremarkable. Gallbladder: There are at least 3 separate gallstones in the gallbladder. No gallbladder wall thickening. Biliary ducts: Unremarkable. Pancreas: Unremarkable. Spleen: Moderate splenomegaly, increased from previously. Current splenic dimensions are 15.1 x 12.1 x 15.3 cm. Adrenal Glands: Unremarkable. Kidneys and Ureters: Unremarkable. Stomach and Bowel: Remote partial distal colectomy. No abnormally dilated loops. Peritoneum: No abnormal intraperitoneal fluid. No free air. Ventral Wall: No hernia. Abdominal Nodes: No retroperitoneal or mesenteric adenopathy by size criteria. Vessels: Aorta and inferior vena cava are normal in size. Remote endograft repair of an abdominal aortic aneurysm. There is a very tiny excluded residual aneurysm sac. PELVIS: Pelvic Organs: Unremarkable. Bladder: Unremarkable. Pelvic Nodes: No enlarged lymph nodes. Miscellaneous: No inguinal hernias are seen. Bones: Lumbar degenerative change. No lytic or blastic bony lesions. No compression fractures. IMPRESSION: 1. Interval increase in splenomegaly, moderate. 2. No adenopathy in the chest, abdomen, and pelvis. 3. At least moderate coronary artery calcifications. 4. No evidence of acute pulmonary process. 5. Cholelithiasis. 6. Remote endovascular treatment of a abdominal aortic aneurysm, no longer present. 7. No acute findings in the abdomen and pelvis. Dictated by: Jesus Gutierrez M.D. on 02/19/2022 at 15:16 Approved by: Jesus Gutierrez M.D. on 02/19/2022 at 15:26
== END ==
PROVIDERS: Family Provider Family Medicine; PCP Family Medicine; Referring Provider Family Medicine; Visit Provider Family Medicine
DX: K80.20 Calculus of gallbladder without cholecystitis without obstruction (principal); R16.1 Splenomegaly, not elsewhere classified; I25.10 Atherosclerotic heart disease of native coronary artery without angina pectoris; R10.9 Unspecified abdominal pain; R63.4 Abnormal weight loss
CPT/HCPCS: 71260; 74177; Q9967

== ENCOUNTER → 2022-07-19 11:39 | Outpatient (CLI) | payer MEDICARE, OTHER, SELFPAY ==
--- NOTE | 2022-07-19 11:42 | DI.RAD.S_ITS ---
PROCEDURE: XR FINGER LT MIN 2V INDICATIONS: Left index finger pain TECHNIQUE: AP hand, 2 views of the 2nd finger(s) acquired. COMPARISON: [facility], [facility], XR HAND LT 2V, 03/19/2020, 11:31. [facility], [facility], FINGER LT, 07/27/2011, 8:20. FINDINGS: Bones: There is an ill-defined nondisplaced lucency extending to the articular surface at the 2nd DIP joint seen only on the lateral view.. There is moderate 1st CMC degenerative narrowing with subchondral sclerosis and periarticular osteophytes. There is an overall appearance moderate scattered IP degenerative narrowing most severe at the PIP and DIP joints. There is prominent 2nd DIP joint space narrowing with areas of subchondral lucency appearing likely related to cysts as they do not extend to the articular surface. These have been relatively stable since 2010. Soft tissues: No suspicious soft tissue calcifications. IMPRESSION: Nondisplaced ill-defined lucency extending to the articular surface at the 2nd DIP joint seen only on one view. Fracture cannot be definitively excluded. Recommend correlation point tenderness in short interval imaging follow-up in 7-10 days. Diffuse arthritic changes as above. Dictated by: Ely Carpio M.D. on 07/19/2022 at 14:23 Approved by: Ely Carpio M.D. on 07/19/2022 at 14:27
== END ==
PROVIDERS: Family Provider Family Medicine; PCP Family Medicine; Referring Provider Family Medicine; Visit Provider Family Medicine
DX: M79.645 Pain in left finger(s) (principal)
CPT/HCPCS: 73140

== ENCOUNTER → 2022-10-06 15:25 | Outpatient (CLI) | payer MEDICARE, OTHER, SELFPAY ==
--- NOTE | 2022-10-06 | DI.RAD.S_ITS ---
PROCEDURE: XR CHEST 2V INDICATIONS: shortness of breath, edema TECHNIQUE: 2 views of the chest were acquired. COMPARISON: [facility], CR, XR CHEST 2V, 03/03/2018, 11:18. FINDINGS: Surgical changes and devices: None. Lungs and pleura: Lungs are clear. No pleural effusions or pneumothorax. Mediastinum: Mediastinal contours are normal. Heart size is normal. Bones and chest wall: No suspicious bony abnormalities. Soft tissues appear unremarkable. IMPRESSION: No acute cardiopulmonary disease. Dictated by: Wilfrid Lucas RR Interpreted: Kareem Hamm MD on 10/06/2022 at 16:12 Transcribed by: MARY on 10/06/2022 at 16:12 Approved by: Kareem Hamm M.D. on 10/06/2022 at 16:43
== END ==
PROVIDERS: Family Provider Family Medicine; PCP Family Medicine; Referring Provider Family Medicine; Visit Provider Family Medicine
DX: R06.02 Shortness of breath (principal); R60.9 Edema, unspecified
CPT/HCPCS: 71046

== ENCOUNTER → 2022-11-19 07:38 | Outpatient (CLI) | payer MEDICARE, OTHER, SELFPAY ==
--- NOTE | 2022-11-19 | DI.ECHO.S_ITS ---
[facility]---------+ [facility] +---------+ : : [address] : : : : [id number] : : : : Phone: [phone]---------+ Echocardiogram Report + + :Name: ULISSES SHIN Study Date: 11/19/2022 Height: 72 in : :[facility] ReadingLocation: Weight: 150 lb : : Gender: Male BSA: 1.9 m2 : :: 1940 Age: 82 yrs BP: 129/69 mmHg: :Reason For Study: Chest Pain, atherosclerotic heart disease : :Ordering Physician: CLEO, : :GE Performed By: Jessie Merrill : :Referring: GE GALLO : + + Interpretation Summary The ejection fraction is estimated to be 60-65%. Diastolic function was not assessed. The left atrium is moderately dilated. The right ventricle is mildly dilated. The right ventricular systolic function is normal. The right atrium is moderate to severely dilated. There is moderate mitral regurgitation. There is mild tricuspid regurgitation. The right ventricular systolic pressure is estimated to be at least 28 mmHg based on an estimated right atrial pressure of 3 mm Hg. Procedure: A two-dimensional transthoracic echocardiogram with color flow and Doppler was performed. The patient was in sinus rhythm with heart rates between 57-63 bpm during the exam. The patient had occasional PVCs during the exam. Left Ventricle: The left ventricle is normal in size and wall thickness. The ejection fraction is estimated to be 60-65%. Diastolic function was not assessed. Right Ventricle: The right ventricle is mildly dilated. The right ventricular systolic function is normal. Atria: The left atrium is moderately dilated. The right atrium is moderate to severely dilated. There is no Doppler evidence for an interatrial shunt. Mitral Valve: The mitral valve leaflets are mildly calcified. There is moderate mitral annular calcification. There is moderate calcification extending into the subvalvular apparatus. There is moderate mitral regurgitation. The mitral regurgitant jet is eccentrically directed. Aortic Valve: The aortic valve opens well. There is no aortic valve stenosis. There is trace aortic regurgitation. Tricuspid Valve: The tricuspid valve is normal in structure and function. There is mild tricuspid regurgitation. The right ventricular systolic pressure is estimated to be at least 28 mmHg based on an estimated right atrial pressure of 3 mm Hg. Pulmonic Valve: The pulmonic valve leaflets are thin and pliable; valve motion is normal. There is a trace or physiologic amount of pulmonic regurgitation. Great Vessels: The aortic root is normal size. The dimensions of the ascending aorta are normal. The IVC is of normal diameter and collapses greater than 50% with a sniff. This suggests a low right atrial pressure of 3 mm Hg. Pericardium/ Pleura There is no pericardial effusion. There is no pleural effusion. MMode/2D Measurements & Calculations LVIDd: 4.2 cm LVOT diam: 2.0 cm LVIDs: 3.1 cm Ao root diam: 3.6 cm FS: 25.9 % asc Aorta Diam: 3.4 cm EPSS: 0.25 cm IVSd: 1.0 cm LVPWd: 0.99 cm LV ralph. diameter/BSA (cm/m^2): 2.2 LV sys. diameter/BSA (cm/m^2): 1.7 LA A2 area: 23.4 cm2 RA long axis: 5.4 cm LA A4 area: 21.7 cm2 RA area: 23.1 cm2 LA length (vol): 5.4 cm RA vol: 84.8 ml LA vol: 80.0 ml RA : 45.0 ml/m2 LA vol index: 42.4 ml/m2 RVD1 (basal): 4.9 cm TAPSE: 2.7 cm Doppler Measurements & Calculations Ao V2 max: 125.4 cm/sec LVOT Max Reed: 113.3 cm/sec Ao V2 mean: 83.6 cm/sec LV V1 max P.1 mmHg Ao max P.3 mmHg LV V1 VTI: 30.1 cm Ao mean P.2 mmHg SALOME(I,D): 3.0 cm2 Ao V2 VTI: 31.2 cm SALOME(V,D): 2.8 cm2 sev ratio: 0.97 SALOME indexed to BSA (cm^2/m^2): 1.6 MV E max reed: 112.3 cm/sec TR max reed: 255.1 cm/sec MV A max reed: 95.9 cm/sec TR max P.5 mmHg MV E/A: 1.2 PA V2 max: 75.6 cm/sec MV dec time: 0.25 sec PA V2 mean: 61.1 cm/sec MVA(VTI): 2.1 cm2 PA mean P.6 mmHg MV V2 mean: 68.9 cm/sec SV(LVOT): 94.8 ml MV mean P.2 mmHg MV V2 VTI: 44.3 cm Reading Physician:12:49 PM
== END ==
PROVIDERS: Family Provider Family Medicine; PCP Family Medicine; Referring Provider Family Medicine; Visit Provider Family Medicine
DX: R07.89 Other chest pain (principal); I25.10 Atherosclerotic heart disease of native coronary artery without angina pectoris; I08.1 Rheumatic disorders of both mitral and tricuspid valves
CPT/HCPCS: 93306

== ENCOUNTER 2023-01-02 05:18 | Inpatient (IN) | payer MEDICARE, OTHER, SELFPAY ==
[2023-01-02] VITALS (39 sets, daily range): BP systolic 59–133; BP diastolic 36–68; PULSE 77–155; RESP 14–34; TEMP 35.7–37.3; O2SAT 76–100
--- NOTE | 2023-01-02 | PATH_ITS ---
[facility] Accession Number: [id number] No. of containers..01 Tissue . 01 Material submitted: . spleen - SPLEEN . 01 Diagnosis: Spleen, Splenectomy: Splenic parenchyma, weight 627 grams, with gross laceration, capsular disruption, hemorrhage, and changes secondary to injury (per provided chart notes). Negative for malignancy. MRV 01/06/2023 1324 Local . 01 Electronically signed: . Drew Cruz MD, Pathologist NPI- [id number] . 01 Gross description: . The specimen is received in formalin labeled with the patient's name, , and spleen, and consists of a 627 g spleen measuring 13.5 cm SI, 12.3 cm ML, 6.7 cm AP. The capsule is diffusely across approximately 50% of the external surface with multiple lacerations across the anterolateral and posterior surfaces ranging from 2.1 cm to 4.3 cm in greatest dimension. Palpation of the small amount of hilar fat reveals no lymph node candidates grossly identified. No lymph nodes or accessory spleens are identified. Sectioning reveals a hemorrhagic area on the cut surface adjacent to the aforementioned lacerations in an area measuring approximately 3.4 cm in greatest dimension. The remaining parenchyma is grossly normal with no discrete lesions or nodules identified. Sheet Finisher sections are submitted as follows: A1: Hilar vascular margins en face. A2-A4: Sheet Finisher lacerations, hemorrhage, and capsular disruption. A5-A6: Sheet Finisher normal parenchyma. ([id number]) /Bekah 01/05/2023 0240 Local . 01 Microscopic: . Microscopic examination reveals hemorrhage and expanded red pulp with vascular congestion, changes (including capsular disruption and gross lacerations) secondary to reported splenic injury, due to trauma. . On the intact areas of splenic parenchyma, no significant diagnostic abnormalities are identified on the white or red pulp. . 01 Pathologist provided ICD-10: K66.1 . 01 CPT . 894643 Specimen Comment: A courtesy copy of this report has been sent to [facility] Pathology Performed at: 01 [facility] [address] [place] [address], [place], [place] [id number] MD Kendall Mac MD Phone: [phone]
--- NOTE | 2023-01-02 05:28 | DI.CT.S_ITS ---
PROCEDURE: CT CERVICAL SPINE WO CON INDICATIONS: Trauma TECHNIQUE: Noncontrast 3 mm thick sections acquired from the skull base to the T4 level. Sagittal and coronal reformats were then constructed. For radiation dose reduction, the following was used: automated exposure control, adjustment of mA and/or kV according to patient size. COMPARISON: None. FINDINGS: Image quality: Excellent. Bones: Nondisplaced coronal E oriented fractures of the lateral masses of C2 traversing through the vertebral foramen. Mild spondylitic degenerative changes and arthropathy. Left 2nd and 3rd rib fractures are seen. Soft tissues: Prevertebral soft tissues are normal in thickness. No paravertebral hematomas. Soft tissue air in the left neck. Partially visualized bilateral pneumothoraces. IMPRESSION: 1. Nondisplaced coronal E oriented fractures through the lateral masses of C2. 2. Bilateral pneumothoraces. 3. Left 2nd and 3rd rib fractures. Dictated by: Xu Alejo M.D. on 01/02/2023 at 9:32 Approved by: Xu Alejo M.D. on 01/02/2023 at 9:34
--- NOTE | 2023-01-02 05:28 | DI.CT.S_ITS ---
PROCEDURE: CT HEAD/BRAIN WO CON INDICATIONS: Trauma TECHNIQUE: Noncontrast 4.5 mm thick angled axial sections acquired from the foramen magnum to the vertex, with coronal and sagittal reformats. For radiation dose reduction, the following was used: automated exposure control, adjustment of mA and/or kV according to patient size. COMPARISON: None. FINDINGS: Image quality: Excellent. CSF spaces: Basal cisterns are patent. No extra-axial fluid collections. Ventricles are normal in size and shape. Brain: No midline shift. No intracranial masses or hemorrhage. Whitley-white matter interface is normal. Skull and face: Calvarium and visualized facial bones are intact, without suspicious lesions. Soft tissue swelling of the posterior occiput. Sinuses: Visualized sinuses and mastoids are clear. IMPRESSION: No acute intracranial abnormality. Dictated by: Xu Alejo M.D. on 01/02/2023 at 9:21 Approved by: Xu Alejo M.D. on 01/02/2023 at 9:22
--- NOTE | 2023-01-02 05:28 | DI.CT.S_ITS ---
PROCEDURE: CT CHEST ABD PEL W CON INDICATIONS: Trauma TECHNIQUE: After the administration of intravenous contrast, 5 mm thick sections acquired from the lung apices to the symphysis. 2.5 mm thick coronal and sagittal reformats were acquired. Additional 7 mm thick coronal maximum intensity projection (MIP) reformats acquired through the lungs. Optional 10-minute delayed imaging may be performed from the kidneys to the bladder. For radiation dose reduction, the following was used: automated exposure control, adjustment of mA and/or kV according to patient size. COMPARISON: [facility], CT, CT HEAD/BRAIN WO CON, 01/02/2023, 6:09. [facility], CT, CT CHEST ABD PEL W CON, 02/17/2022, 12:45. FINDINGS: Image quality: Excellent. CHEST: Lungs: Approximately 50% right pneumothorax and 60-70% left pneumothorax. No significant midline shift. Bilateral pleural effusions. There may be a minor hemorrhagic component in the left pleural effusion. Partial atelectasis of the lower lobes and left upper lobe. Mediastinum: No mediastinal hematomas. The coronary arteries have atherosclerotic calcifications. Heart size is normal. No pericardial effusion. Thoracic aorta and pulmonary arteries demonstrate normal size and enhancement. No mediastinal or hilar adenopathy. Esophagus is normal in caliber. No hiatal hernia. Chest wall: Soft tissue air in the left chest wall. No subcutaneous emphysema. No axillary or supraclavicular adenopathy. Thyroid gland is normal. ABDOMEN: Solid organs: Liver is normal in size and enhancement, without lacerations. Gallbladder contains a gallstone. Biliary system is non-dilated. Pancreas enhances normally, without transection. 10.0 x 8.3 x 8.3 cm complex intraparenchymal laceration involving the spleen containing multiple areas of IV contrast extravasation within intrasplenic hematoma. Minor adjacent perisplenic blood. The splenic hilum vascular structures are intact. The left kidney and left adrenal gland are intact. Inferior left perinephric hematoma containing small areas of intraparenchymal hematoma contrast extravasation. This hematoma is regular in contour measuring 5 x 10 x 5.5 cm. Associated surrounding ill-defined left retroperitoneal blood. Just above the left renal vein, left renal artery, and posterior pancreatic body is an additional hematoma with surrounding ill-defined blood containing small IV contrast extravasation. This hematoma measures 4.2 x 3.6 x 3.4 cm. Peritoneum and bowel: Moderate volume of ill-defined left retroperitoneal blood extends from this region posteriorly and inferiorly coursing into the pelvic inlet. Nodes and vessels: No retroperitoneal or mesenteric adenopathy. Aorta and inferior vena cava are normal in size and enhancement. Aortoiliac stent graft is intact. Miscellaneous: No ventral hernias. PELVIS: Genitourinary: Bladder wall thickness is normal. Miscellaneous: No inguinal hernias or adenopathy. Bones: Left posterior 2nd and 3rd rib fractures. The thoracic spine appears intact. The xiphoid process is fractured and displaced 50% posteriorly. IMPRESSION: 1. Splenic laceration with intraparenchymal hemorrhage and small perisplenic hemoperitoneum-grade 4 splenic injury. 2. Retroperitoneal hemorrhage with inferior perinephric fat hemorrhage with small contrast extravasation. 3. Additional retroperitoneal hematoma with minor contrast extravasation just above the left renal artery and vein and posterior to the pancreatic body. 4. Bilateral pneumothoraces. 5. Bilateral pleural effusions. 6. Left posterior 2nd and 3rd rib fractures. 7. Xiphoid fracture. Comment: Final report is concordant with preliminary interpretation by [facility] Dictated by: Xu Alejo M.D. on 01/02/2023 at 9:22 Approved by: Xu Alejo M.D. on 01/02/2023 at 9:32
[2023-01-02 05:41] LABS: Hematocrit 41.4 % (41-53); Hemoglobin 12.1 g/dL (13.5-17.5); Mean Corpuscular HGB Conc 29.1 % (30-36); Mean Corpuscular Volume 75.5 fL (80-100); Platelet Count 354 X10^3/uL (150-400); Red Blood Cell Count 5.48 X10^6/uL (4.5-5.9); Red Cell Distribution Width 18.4 % (11.6-14.8)
[2023-01-02 05:42] LABS: Add Manual Diff / Slide Review YES
[2023-01-02 05:43] LABS: White Blood Cell Count 78.5 X10^3/uL (4.5-11.0)
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
[2023-01-02 05:44] LABS: INR 1.3 (0.9-1.3)
[2023-01-02 05:46] LABS: PTT Partial Thromboplastin Tim 36 SECONDS (26-36)
[2023-01-02 06:00] LABS: Lactate (Lactic Acid) 2.2 mmol/L (0.7-2.1)
[2023-01-02 06:01] LABS: Alanine Aminotransferase 30 IU/L (<50); Albumin 3.9 g/dL (3.5-5.0); Albumin Globulin Ratio 1.4 (1.0-2.8); Alkaline Phosphatase 210 U/L (38-126); Aspartate Aminotransferase 65 IU/L (17-59); BUN Creatinine Ratio 12.5 (6-22); Bilirubin Total 0.7 mg/dL (0.2-1.3); Blood Urea Nitrogen 13 mg/dL (9-20); Calcium 8.8 mg/dL (8.4-10.2); Carbon Dioxide 28 mmol/L (22-32); Chloride 103 mmol/L (98-107); Creatine Kinase 423 U/L (55-170); Estimated Glomerular Filt Rate > 60 mL/min (>60); Ethanol (ETOH) < 10 mg/dL; Globulin 2.8 g/dL (1.7-4.1); Glucose 131 mg/dL (80-110); HEMOLYSIS < 15 (0-50); Lipase 673 U/L (23-300); Potassium 3.6 mmol/L (3.4-5.1); Sodium 138 mmol/L (137-145); Total Protein 6.7 g/dL (6.3-8.2)
[2023-01-02 06:11] LABS: Troponin I < 0.012 ng/mL (0.01-0.034)
[2023-01-02 06:16] LABS: CKMB % Relative Index 1.3 % (1.5-5.0); Creatine Kinase MB 5.56 ng/mL (<2.37)
[2023-01-02] MEDS: TRANEXAMIC ACID 1,000 MG in SODIUM CHLORIDE 0.9% 100 ML 200 MG IV ×2 (06:27→10:15)
[2023-01-02 06:51] LABS: Neutrophils Absolute Manual 75360 /uL (3000-5900); Total Cells Counted 100
[2023-01-02 06:54] LABS: Hypochromasia 1+; RBC Morphology See
[2023-01-02] MEDS: LIDOCAINE 2% INJ SDV 5ML 15 ML (07:15)
[2023-01-02] MEDS: HYDROMORPHONE 1 MG INJ IV (07:20)
[2023-01-02] MEDS: propofoL 1,000 MG/100 ML VIAL 2.274 MG IV (07:30)
[2023-01-02 07:31] LABS: Reflexed Lactate in 2 Hours Y
--- NOTE | 2023-01-02 07:37 | DI.RAD.S_ITS ---
PROCEDURE: XR CHEST 1V INDICATIONS: chest tube insertion TECHNIQUE: One view of the chest was acquired. COMPARISON: [facility], CT, CT CHEST ABD PEL W CON, 01/02/2023, 5:23. [facility], CR, XR CHEST 1V, 01/02/2023, 5:08. FINDINGS: Surgical changes and devices: Endotracheal tube is seen terminating approximately 5.5 cm above the carol. Enteric tube is seen traversing the diaphragm with tip projecting over the left upper quadrant. Bilateral chest tubes are present. Abdominal aortic stent graft is partially visualized. Postsurgical changes are seen in the upper abdomen. Lungs and pleura: Small right-sided pneumothorax. No significant right pleural effusion. Mild central right lung opacity may be related to chest tube insertion. Moderate diffuse pulmonary opacities throughout the left lung. Suspected small left pleural effusion layering posteriorly. Mediastinum: Mediastinal contours appear normal. Heart size is normal. Bones and chest wall: Mild subcutaneous emphysema is seen bilaterally related to chest tube insertion. No suspicious bony lesions. Overlying soft tissues appear unremarkable. IMPRESSION: 1. Endotracheal and enteric tubes in satisfactory positions. 2. Bilateral chest tubes are present. 3. Small right pneumothorax. 4. Moderate left-sided pulmonary opacities. Suspected small left pleural effusion. Approved by: Brenden Doe M.D. on 01/02/2023 at 8:23
[2023-01-02] MEDS: SUCCINYLCHOLINE 200 MG/10 ML VIAL 100 MG IV (07:45)
[2023-01-02] MEDS: KETAMINE 500 MG/5 ML INJ 150 MG IV (07:45)
[2023-01-02] MEDS: PIPERACILLIN/TAZO 3.375 GM in SODIUM CHLORIDE 0.9% 100 ML IV (09:00)
--- NOTE | 2023-01-02 09:01 | PC.NURSE ---
Vital signs going every 5 minutes. Vitals not documented in [facility]AR Due to caring for patient but in chart and were evaluated for reaction. No blood reaction noted. Pt was transfered to OR with a primed bag of levofed. Pt's bp increased during chest tube placement and was not started in ER. PT also had Propofol infusing at time of admit. Pt's belongings given to son, Darrion Buitrago including upper dentures and watch.
--- NOTE | 2023-01-02 09:08 | PC.NURSE ---
Surgeon in to see patient. reports splenic lac. found bilateral pneumo, dr sweet and surgeon in to place chest tubes. after placement of bilateral chest tubes. pt's spo2 dropped to 70s on nc 2l. Surgeon decided to intubate. meds pushed at 0745. Pt intubated with 7.5 tube. Spo2 immediately increased to 100% on 100% fiO2. surgery team in shortly after to accept care of patient.
--- NOTE | 2023-01-02 09:31 | SUR.OPER ---
Supine on padded OR bed, head on pillow, arms secured on padded arm boards at <90 degrees abduction, legs uncrossed, safety belt at thigh, tape over blanket over lower legs.
--- NOTE | 2023-01-02 09:34 | PM.PROC.1 ---
Procedures Date/Time Date of procedure: 01/02/23 Time of procedure: 08:30 Arterial Line Time out performed: Yes Size (Gauge): 20 Technique used: guide wire technique Post-Procedure: dry sterile dressing placed Patient tolerated procedure: Well and No complications Complications: none Site: left and radial
[2023-01-02 09:41] LABS: Hematocrit 34.7 % (41-53); Hemoglobin 10.6 g/dL (13.5-17.5); Mean Corpuscular HGB Conc 30.4 % (30-36); Mean Corpuscular Volume 78.9 fL (80-100); Platelet Count 289 X10^3/uL (150-400); Red Cell Distribution Width 18.6 % (11.6-14.8)
[2023-01-02 09:47] LABS: White Blood Cell Count 78.5 X10^3/uL (4.5-11.0)
[2023-01-02 09:58] LABS: Fibrinogen 141 mg/dL (211-428); INR 1.6 (0.9-1.3); Prothrombin Time 18.9 SECONDS (10.1-12.7)
[2023-01-02 09:59] LABS: BUN Creatinine Ratio 15.5 (6-22); Blood Urea Nitrogen 13 mg/dL (9-20); Calcium 7.4 mg/dL (8.4-10.2); Carbon Dioxide 20 mmol/L (22-32); Chloride 108 mmol/L (98-107); Estimated Glomerular Filt Rate > 60 mL/min (>60); Glucose 187 mg/dL (80-110); HEMOLYSIS < 15 (0-50); Lactate 2HR (Lactic Acid Rflx) 3.7 mmol/L (0.7-2.1); PTT Partial Thromboplastin Tim 34 SECONDS (26-36); Potassium 4.3 mmol/L (3.4-5.1); Sodium 135 mmol/L (137-145)
[2023-01-02 10:03] LABS: D Dimer 15688 ng/ml (<500)
[2023-01-02 10:10] LABS: HCO3 ABG 22 mmol/L (23-27); Oxygen Saturation ABG 100 % (95-100); PCO2 ABG 42.2 mmHg (35-45); PO2 ABG 253 mmHg (80-100); TCO2 ABG 23 mmol/L (23-27)
[2023-01-02 10:11] LABS: Fractionated Inspired Oxygen 60
[2023-01-02 10:12] LABS: pH ABG 7.31 (7.35-7.45)
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
--- NOTE | 2023-01-02 11:46 | PM.OP.1 ---
Operative Date/Time/Diagnoses Date of procedure: 01/02/23 Pre-op diagnosis: Splenic injury, trauma Procedure & Clinicians Procedure: Trauma exploratory laparotomy. Splenectomy. Same procedure as scheduled: Yes Indications: Trauma, active bleeding. Acute blood loss Surgeon: Alondra Rojas Diving Instructor: Dieudonne Lindsay Anesthesia Type: General Operative Notes Findings: Enlarged spleen with active bleeding from large laceration. There was a retroperitoneal hematoma that seemed stable. Specimen(s): other (Spleen) Procedure in detail: Patient was taken to the operating room emergently. Prior, in the emergency room bilateral chest tubes were placed. Initial output was 150 cc on the left and minimal on the right. The patient was subsequently intubated in the [facility] when after the chest tube placement he didn't take deep breaths and 02 sats dropped. This improved quickly with bagging and intubation. He had received 2 units of pRBCs and 1 unit of FFP in the emergency room. He was transferred to the operating room directly under the care of our anesthesiologist Dr. Chisholm. An arterial line was placed. I was present in the emergency room with the patient since about 7 in the morning and Dr. Lindsay arrived as soon as the patient rolled into the OR. Resuscitation was actively continued as the abdomen was prepped and draped in the usual sterile fashion. Care was taken to keep the patient warm with a ry hugger. The abdomen was entered with a 10 blade scalpel. The patient had a large abdominal incision from previous exploratory surgery. The peritoneal cavity was carefully opened but there were adhesions underlying the midline. The incision was carried down through the subcutaneous tissue and fascia with electrocautery and a generous incision was opened in the midline. During this process some ectopic bone was encountered. This bone was grasped and removed using electrocautery. It was attached and contained within the anterior abdominal wall. Next attention was turned to the left upper quadrant. After some adhesiolysis, a large hematoma was seen there. Lateral attachments were taken down and finger dissection was used mostly to mobilize spleen that had already been a somewhat mobilized by the hematoma. The spleen was brought medial and into the wound. The splenic artery and vein were identified. The tail of the pancreas was seen and preserved. The splenic artery and vein were isolated and ligated separately with 2 successive 2-0 silk sutures and a vascular staple load. No left sided diaphragmatic injury was seen. Warm irrigation was used and the left upper quadrant was dry. It was packed with 3 lap sponges. Next, we evaluated the left sided retroperitoneum. There was a large hematoma there. Active extravasation had been seen on the CT scan. The hematoma was gently evacuated and irrigation was used. There was not active bleeding appreciated and two additional lap sponges were placed behind the left kidney. Additionally, there were two small enterotomies of small bowel in the lower midline. These were on separate loops of small bowl but adhesed in proximity to each other with scar tissue. There were adhesions adjacent to the injuries. The enterotomoies were small, and a full thickness hole in the bowel wall of about 2-3 mm was closed with 3-0 vicryl interrupted sutures. There was a larger zone of serosal injury around each enterotomy. The repair was dunked and the serosa closed over top in a lembert fashion with interuppted 3-0 silk sutures. There was also mild hematoma of the bowel wall around the site of the injury. The above noted characteristics made us suspect that the etiology was traction injury due to the original trauma, but entry or iatrogentic injury is possible. At this point, having a CT scan and knowing that additional adhesiolysis required to run the entire small bowel or further explore the abdomen would delay transfer and prolong operative time, I elected to close the abdomen loosely with 1-0 prolene running sutures and skin davida. The patient was hemodynamiacally adequate with transfusions throughout the case and was producing appropriate urine. The total # of units given intraoperatively were 3 pRBC and 1 FFP. (total of 5 pRBC and 2 FFP with ER) He got 1 mg CaCl. He got a dose of Zosyn in the OR. He received two doses of tranexamic acid. The chest tube output at the end of the case was 300cc on the left and minimal on the right. Dr. Lindsay was present for the entire case and his assistance with exposure and intraoperative decision making was critical. Post-operative Condition: critical Disposition: other (to [facility] for trauma care. )
--- NOTE | 2023-01-02 12:56 | SUR.OPER ---
Transfusing blood product left OR with patient.
[2023-01-03 07:14] LABS: Fractionated Inspired Oxygen 100; HCO3 ABG 21 mmol/L (23-27); Oxygen Saturation ABG 100 % (95-100); PCO2 ABG 50.4 mmHg (35-45); PO2 ABG 394 mmHg (80-100); TCO2 ABG 23 mmol/L (23-27)
[2023-01-03 07:15] LABS: pH ABG 7.23 (7.35-7.45)
== END 2023-01-02 13:00 | disposition short-term general hospital (02) | DRG 957 ==
LOC: ED 07:36 → AC 07:36
PROVIDERS: Anesthesiology; Emergency Medicine; Admitting Provider Surgery; Emergency Provider Emergency Medicine; Family Provider Family Medicine; PCP Family Medicine; Referring Provider Emergency Medicine; Visit Provider Surgery
PROC: 07TP0ZZ Resection of Spleen, Open Approach (ICD-10-PCS; CPT 49000; principal; 2023-01-02 08:30)
DX: S36.032A Major laceration of spleen, initial encounter (principal); T79.4XXA Traumatic shock, initial encounter; S27.0XXA Traumatic pneumothorax, initial encounter; S22.32XA Fracture of one rib, left side, initial encounter for closed fracture; S12.100A Unspecified displaced fracture of second cervical vertebra, initial encounter for closed fracture; S36.892A Contusion of other intra-abdominal organs, initial encounter; V89.2XXA Person injured in unspecified motor-vehicle accident, traffic, initial encounter; Z87.891 Personal history of nicotine dependence
CPT/HCPCS: 32551; 36415; 36430; 36600; 38100; 70450; 71045; 71260; 72125; 74177; 80048; 80053; 80320; 82550; 82553; 82805; 83605; 83690; 84484; 85007; 85025; 85027; 85379; 85384; 85610; 85730; 86850; 86900; 86901; 86927; 93005; 94002; 94799; 96365; 96375; 99285; 99291; 99292; P9016; P9040; G0390; J0330; J1100; J1170; J2250; J2543; J2704; J3010; Q9967